=== PATIENT | female | born 1990 | race Caucasian/White ===

== ENCOUNTER 2023-06-17 11:19 | Emergency (ER) | payer MEDICAID, OTHER ==
[~2023-06-17] VITALS: Ht 149.9 cm; Wt 66.3 kg
[~2023-06-17 11:19] MED LIST: VICODIN
[2023-06-17 11:49] VITALS: BP 101/53; PULSE 56; RESP 18; TEMP 99; O2SAT 100
[2023-06-17] MEDS ORDERED: diphenhdrAMINE HCL 50 MG/1 ML VL IM ONE (12:15)
[2023-06-17] MEDS ORDERED: HYDROcodone-ACET 5/325MG TAB PO ONE (12:15)
[2023-06-17] MEDS ORDERED: KETOROLAC TROMETH 60MG/2ML VIAL IM ONE (12:15)
[2023-06-17] MEDS ORDERED: PRED20TA2 PO (13:14)
[2023-06-17] MEDS ORDERED: TRAM50TA2 PO (13:14)
== END 2023-06-17 13:21 | disposition home or self-care (01) ==
LOC: ER 11:19
DX: M54.42 Lumbago with sciatica, left side (principal); M41.9 Scoliosis, unspecified
CPT/HCPCS: 72100; 96372; 99284; J1200; J1885

== ENCOUNTER → 2024-12-26 | Outpatient (CLI) | payer MEDICAID ==
[~2024-12-26] MED LIST changes: +PRED20TA2 PO; +TRAM50TA2 PO
[2024-12-26 08:32] LABS: Basophils # (auto) 0 10 ^3/uL (0-0.2); Basophils % (auto) 0.3 % (0.0-2.0); Eosinophils # (auto) 0.1 10 ^3/uL (0-0.8); Eosinophils % (auto) 1.3 % (0.0-7.0); Hematocrit 38.2 % (36.0-46.0); Hemoglobin 13.4 g/dL (12.2-16.2); Lymphocytes # (auto) 1.9 10 ^3/uL (0.4-5.4); Lymphocytes % (auto) 18.7 % (10.0-50.0); Mean Corpuscular Hgb Conc. 35.2 g/dL (32.0-36.0); Mean Corpuscular Volume 88.2 fL (80.0-100.0); Monocytes # (auto) 0.5 10 ^3/uL (0-1.3); Monocytes % (auto) 5.1 % (0.0-12.0); Neutrophils # (auto) 7.6 10 ^3/uL (1.6-8.6); Neutrophils % (auto) 74.6 % (37.0-80.0); Nucleated Red Blood Cells % 0.1 %; Platelet Count (auto) 215 10^3/uL (140-450); Red Blood Cells 4.33 10^6/uL (4.0-5.20); Red Cell Distribution Width 13.4 % (11.8-14.3); White Blood Cell 10.2 10^3/uL (4.4-10.8)
[2024-12-26 08:51] LABS: Alkaline Phosphatase 113 U/L (46-116); Anion Gap 8 (5-15); Aspartate Aminotransferase 37 U/L (13-40); Calcium 9.3 mg/dL (8.7-10.4); Carbon Dioxide 22 mmol/L (20-31); Potassium 3.9 mmol/L (3.5-5.1); Sodium 138 mmol/L (136-145); Total Protein 6.5 g/dL (5.7-8.2)
[2024-12-26 08:52] LABS: BUN/Creatinine Ratio 9.6 (10.0-20.0); Bilirubin, Total 0.4 mg/dL (0.2-1.0); Blood Urea Nitrogen < 5 mg/dL (9-23); Chloride 108 mmol/L (98-107)
[2024-12-26 08:53] LABS: Alanine Aminotransferase 51 U/L (7-40)
[2024-12-26 09:06] LABS: Glucose 77 mg/dL (74-106)
[2024-12-27 06:07] LABS: RPR Non Reactive (Non Reactive)
[2024-12-27 23:07] LABS: Chlamydia Trachomatis, NAA Negative (Negative); Neisseria gonorrhoeae, NAA Negative (Negative)
== END | disposition home or self-care (01) ==
LOC: LAB 07:58
PROVIDERS: ATTEND Obstetrics & Gynecology
DX: Z34.00 Encounter for supervision of normal first pregnancy, unspecified trimester (principal); Z3A.00 Weeks of gestation of pregnancy not specified
CPT/HCPCS: 36415; 80053; 82951; 83036; 85025; 86592; 86850; 86900; 86901

== ENCOUNTER 2025-01-14 06:53 | Observation (INO) | payer MEDICAID ==
--- NOTE | 2025-01-14 13:49 | DVH ---
BIOPHYSICAL PROFILE HISTORY: gdma1 TECHNIQUE: Multiple transabdominal real-time grayscale sonographic images through the gravid uterus of the fetus with duplex Doppler color flow and M-mode spectral analysis FINDINGS: BIOPHYSICAL PROFILE: breathing score: 2/2 movement score: 2/2 tone score: 2/2 Quantitative MAYNOR score: 2/2 (MAYNOR: 19.5 Cm.) Total score: 8 out of 8 The cervix closed Single live fetus in cephalic presentation. heart rate 138 beats per minute. Posterior placenta without previa or abruption IMPRESSION: 1. Biophysical profile score: 8/8
--- NOTE | 2025-01-14 23:44 | DVHDS2 ---
Discharge Summary Date of Admission Jan 14, 2025 at 12:52 Date of Discharge: Jan 14, 2025 Admitting Diagnosis 31 wk GDM A1 for routine monitoring Labs/Diagnostic Data: Laboratory Results Test 01/14/25 13:59 POC Glucose 84 mg/dl (70-106) Brief Hx & Hospital Course: US and FHT reasuring Condition at Discharge: Good Final Diagnosis/Problems List GDM A1 31 weeks Discharge Disposition: Home Discharge Instruct/Medications Diet: Consistent carbohydrate Activity: No Restrictions, As Tolerated Discharge Statement: "Patient was advised to return to the ER or call 911 if any headaches, dizziness, shortness of breath, chest pain, abdominal pain, bleeding, fevers, or worsening of medical condition. Patient was counseled about treatment plan, medications, possible side effects, patientverbalized understanding. All questions were answered to the best of my ability. This discharge took greater then 30 minutes in planning, reviewing documentation, counseling the patient, and discussing with other team members." ASSESSMENT ASSESSMENT Assessment Visit Coding OBGYN Date of Service: Jan 14, 2025 Billing Provider: FIDE KELLY DO DEPUTY CHIEF EXECUTIVE Common Visit Codes: 48127-KYD/OBS SAME DATE (LOW), 18318-ANH/OBS SAME DATE (MOD), 07697-STQ/OBS SAME DATE (HIGH) DEPUTY CHIEF EXECUTIVE Procedure Codes: 19532-73- NON-STRESS TEST FIDE KELLY DO Jan 14, 2025 23:44
== END 2025-01-14 14:26 | disposition home or self-care (01) ==
LOC: LDRP 12:52 → UNDOADMOB 12:52 → LDRP 13:00 → UNDODISOB 14:26
PROVIDERS: ADMIT Obstetrics & Gynecology; ATTEND Obstetrics & Gynecology
DX: O24.419 Gestational diabetes mellitus in pregnancy, unspecified control (principal); Z98.890 Other specified postprocedural states; Z79.899 Other long term (current) drug therapy; Z3A.31 31 weeks gestation of pregnancy
CPT/HCPCS: 59025; 76819; 81002; 82948; 82962; 94760; G0378

== ENCOUNTER 2025-01-16 13:00 | Observation (INO) | payer MEDICAID ==
[~2025-01-16] VITALS: Ht 147.3 cm; Wt 70.8 kg
--- NOTE | 2025-01-16 14:06 | DVH ---
Procedure: US BIOPHYSICAL PROFILE 01/16/2025 01:30 PM Indication: decreased movement Comparison: US BIOPHYSICAL PROFILE on DOS: 01/14/25 Technique: Sonogram of gravid uterus utilizing grayscale and color techniques. FINDINGS: Single living intrauterine gestation. Presentation: Cephalic Placenta: Posterior heart rate: 157 bpm MAYNOR: 19.1 cm, DVP: 6.1 cm Maternal cervix: Not visualized Biophysical Profile: breathing score: 2 movement score: 2 tone: 2 Quantitative MAYNOR score: 2 Total score: 8/8 IMPRESSION: 1. Single living as above. 2. Biophysical profile score: 8/8.
[2025-01-16] MEDS ORDERED: LACTATED RINGER'S 1,000 ML IV ONE (14:15)
[2025-01-16 14:48] LABS: Urine Bacteria FEW /hpf (None Seen); Urine Blood Negative /uL (Negative); Urine Clarity Clear (Clear); Urine Color Light-Yellow (Yellow); Urine Protein, UAD Negative (Negative); Urine Specific Gravity 1.011 (1.001-1.035); Urine Squamous Epithelial Cell FEW /hpf (<5); Urine Urobilinogen Normal (Negative); Urine WBC < 1 /HPF (0-5)
[2025-01-16 14:58] LABS: Amphetamine Screen, Urine Neg (NEGATIVE); Barbiturate Scree,Urine Neg (NEGATIVE); Benzodiazephine Screen, Urine Neg (NEGATIVE); Cannabinoid Screen, Urine Neg (NEGATIVE); Cocaine Screen, Urine Neg (NEGATIVE); Opiate Scree,Urine Neg (NEGATIVE); Phencyclidine Screen, Urine Neg (NEGATIVE)
[2025-01-16] MEDS: TERBUTALINE SULFATE 1 MG/ML 1ML VIAL SC SCH (15:43)
[2025-01-16] MEDS ORDERED: NIFE10CA52 PO (16:09)
--- NOTE | 2025-01-16 21:42 | DVHDS2 ---
Physician Discharge Progress N Final Diagnosis: wellbeing established PTL GDM, A1 Operations or Procedures: Operations or Procedures S: 34yo IUP@32.1wks presents to OB triage with c/o DFM for last 2 hours. PNC at [facility] OB, complicated by GDM, A1. Denies UCs/LOF/VB. O: VSS NST reactive TOCO: UCs noted initially, IV fluid bolus and terbutaline SQ x1 given then no UCs prior to D/C PO hydrate Laboratory Tests Test 01/16/25 13:45 01/16/25 13:58 Range/Units Urine Color Light-yellow Yellow Urine Clarity Clear Clear Urine pH 6.0 5.0-9.0 Urine Specific Crystal 1.011 1.001-1.035 Urine Protein Negative Negative Urine Ketones Negative Negative Urine Blood Negative Negative /uL Urine Nitrite Negative Negative Urine Bilirubin Negative Negative Urine Urobilinogen Normal Negative mg/dL Urine Leukocyte Esterase Negative Negative /uL Urine RBC None seen 0 - 4 /hpf Urine Microscopic WBC < 1 0-5 /HPF Urine Squamous Epithelial Cells Few <5 /hpf Urine Bacteria Few H None Seen /hpf Urine Glucose 1+ H Normal mg/dL Urine Opiates Screen Neg NEGATIVE Urine Fentanyl Screen Neg NEGATIVE Urine Barbiturates Screen Neg NEGATIVE Urine Phencyclidine Screen Neg NEGATIVE Urine Amphetamines Screen Neg NEGATIVE Urine Benzodiazepines Screen Neg NEGATIVE Urine Cocaine Screen Neg NEGATIVE Urine Cannabinoids Screen Neg NEGATIVE POC Glucose 66 L 70-106 mg/dl A: 34yo IUP@32.1wks wellbeing established PTL GDM, A1 P: D/C home Dr. Ardon consulted, rx sent for procardia 10mg Q6hrs FKC/PTL precautions reviewed Condition on Discharge: Stable Disposition: Home Discharge Instructions: Diet: Consistent carbohydrate Activity: See Comment Activity comment: pelvic rest Follow Up/Referral: f/u in 1 wk Medications: see med list Follow Up Care: Specialist: f/u in 1 wk Discharge Statement: "Patient was advised to return to the ER or call 911 if any headaches, dizziness, shortness of breath, chest pain, abdominal pain, bleeding, fevers, or worsening of medical condition. Patient was counseled about treatment plan, medications, possible side effects, patientverbalized understanding. All questions were answered to the best of my ability. This discharge took greater then 30 minutes in planning, reviewing do cumentation, counseling the patient, and discussing with other team members." Visit Coding OBGYN Date of Service: Jan 16, 2025 Billing Provider: OPAL MARCOS CNM CAR LOADER Common Visit Codes: 46426-[id number] OBS CARE (HIGH) CAR LOADER Procedure Codes: 33599-72- NON-STRESS TEST OPAL MARCOS CNM Jan 16, 2025 21:41
== END 2025-01-16 16:30 | disposition home or self-care (01) ==
LOC: LDRP 13:00
PROVIDERS: ADMIT Obstetrics & Gynecology; ATTEND Obstetrics & Gynecology
DX: O60.03 Preterm labor without delivery, third trimester (principal); O24.419 Gestational diabetes mellitus in pregnancy, unspecified control; O36.8190 Decreased fetal movements, unspecified trimester, not applicable or unspecified; O09.523 Supervision of elderly multigravida, third trimester; Z3A.32 32 weeks gestation of pregnancy; Z98.890 Other specified postprocedural states; Z79.899 Other long term (current) drug therapy
CPT/HCPCS: 76819; 80307; 81001; 81002; 82962; 94760; G0378; J3105; 96372

== ENCOUNTER 2025-01-21 09:44 | Observation (INO) | payer MEDICAID ==
[~2025-01-21 09:44] MED LIST changes: +NIFE10CA52 PO; -PRED20TA2 PO; -TRAM50TA2 PO; -VICODIN
--- NOTE | 2025-01-21 10:57 | DVH ---
BIOPHYSICAL PROFILE HISTORY: GDMA1/PTL TECHNIQUE: Multiple transabdominal real-time grayscale sonographic images through the gravid uterus of the fetus with duplex Doppler color flow and M-mode spectral analysis FINDINGS: BIOPHYSICAL PROFILE: breathing score: 2 movement score: 2 tone score: 2 Quantitative MAYNOR score: 2 (MAYNOR: 15 Cm.) Total score: 8 The cervix is closed measuring 3.3cm Single live fetus in cephalic presentation. heart rate 15.3 beats per minute. Grade II posterior placenta without previa or abruption IMPRESSION: Biophysical profile score: 8/8
--- NOTE | 2025-01-22 14:24 | DVHDS2 ---
Physician Discharge Progress N Final Diagnosis: gdm 32 wks Operations or Procedures: Operations or Procedures nst,sono Condition on Discharge: Good Disposition: Home Discharge Instructions: Diet: Consistent carbohydrate Activity: No Restrictions, As Tolerated Medications: na Follow Up Care: Specialist: 4d Discharge Statement: "Patient was advised to return to the ER or call 911 if any headaches, dizziness, shortness of breath, chest pain, abdominal pain, bleeding, fevers, or worsening of medical condition. Patient was counseled about treatment plan, medications, possible side effects, patientverbalized understanding. All questions were answered to the best of my ability. This discharge took greater then 30 minutes in planning, reviewing documentat ion, counseling the patient, and discussing with other team members." Visit Coding OBGYN Date of Service: Jan 21, 2025 Billing Provider: ALBERTO VIVEROS DO IT BUSINESS SYSTEMS ANALYST Common Visit Codes: [id number] INP/OBS CARE(HIGH) IT BUSINESS SYSTEMS ANALYST Procedure Codes: 42482-05- NON-STRESS TEST ALBERTO VIVEROS DO Jan 22, 2025 14:24
== END 2025-01-21 11:00 | disposition home or self-care (01) ==
LOC: LDRP 09:44 → UNDOADMOB 09:44 → LDRP 09:54
PROVIDERS: ADMIT Obstetrics & Gynecology; ATTEND Obstetrics & Gynecology
DX: O24.419 Gestational diabetes mellitus in pregnancy, unspecified control (principal); Z98.890 Other specified postprocedural states; Z79.899 Other long term (current) drug therapy; Z3A.32 32 weeks gestation of pregnancy
CPT/HCPCS: 76817; 76818; 81002; 82948; 82962; 94760; G0378; 76819

== ENCOUNTER 2025-01-28 06:35 | Observation (INO) | payer MEDICAID ==
--- NOTE | 2025-01-28 12:04 | DVH ---
BIOPHYSICAL PROFILE HISTORY: GDMA1/PTL- cervical length Comparison Study: 01/21/2025 TECHNIQUE: Multiple real-time grayscale sonographic images through the gravid uterus of the fetus wi th duplex Doppler color flow and M-mode spectral analysis FINDINGS: BIOPHYSICAL PROFILE: breathing score: 2 movement score: 2 tone score: 2 Quantitative MAYNOR score: 2 (MAYNOR: 17.2 Cm.) Total score: 8 The cervix is closed and measures 3.5 cm. Single live fetus in cephalic presentation. heart rate 127 beats per minute. Posterior placenta without previa or abruption IMPRESSION: Biophysical profile score: 8
[2025-01-28] MEDS ORDERED: PREN-96 PO (12:43)
--- NOTE | 2025-01-29 12:27 | DVHDS2 ---
Physician Discharge Progress N Final Diagnosis: gdm,ptl 33wks Operations or Procedures: Operations or Procedures nst,sono 33wks Condition on Discharge: Good Disposition: Home Discharge Instructions: Diet: Regular, Consistent carbohydrate Activity: No Restrictions, As Tolerated Medications: na Follow Up Care: Specialist: 3d Discharge Statement: "Patient was advised to return to the ER or call 911 if any headaches, dizziness, shortness of breath, chest pain, abdominal pain, bleeding, fevers, or worsening of medical condition. Patient was counseled about treatment plan, medications, possible side effects, patientverbalized understanding. All questions were answered to the best of my ability. This discharge took greater then 30 minutes in planning, reviewing documentation, counseling the patient, and discussing with other team members." Visit Coding OBGYN Date of Service: Jan 28, 2025 Billing Provider: ALBERTO VIVEROS DO RESIDENTIAL CARE OFFICER Common Visit Codes: 43420-GWHLTON INP/OBS CARE (HIGH) RESIDENTIAL CARE OFFICER Procedure Codes: 29282-12- NON-STRESS TEST ALBERTO VIVEROS DO Jan 29, 2025 12:27
== END 2025-01-28 12:52 | disposition home or self-care (01) ==
LOC: LDRP 10:43 → UNDOADMOB 10:43 → LDRP 10:54
PROVIDERS: ADMIT Obstetrics & Gynecology; ATTEND Obstetrics & Gynecology
DX: O60.03 Preterm labor without delivery, third trimester (principal); O24.419 Gestational diabetes mellitus in pregnancy, unspecified control; Z98.890 Other specified postprocedural states; Z79.899 Other long term (current) drug therapy; Z3A.33 33 weeks gestation of pregnancy
CPT/HCPCS: 59025; 76819; 81002; 82948; 82962; 94760; G0378

== ENCOUNTER 2025-02-06 06:44 | Observation (INO) | payer MEDICAID ==
[~2025-02-06 06:44] MED LIST changes: +PREN-96 PO
--- NOTE | 2025-02-06 14:28 | DVHDS2 ---
Physician Discharge Progress N Final Diagnosis: gdm Operations or Procedures: Operations or Procedures nst,sono Condition on Discharge: Good Disposition: Home Discharge Instructions: Diet: Consistent carbohydrate Activity: Light activity Medications: na Follow Up Care: Specialist: 1w Discharge Statement: "Patient was advised to return to the ER or call 911 if any headaches, dizziness, shortness of breath, chest pain, abdominal pain, bleeding, fevers, or worsening of medical condition. Patient was counseled about treatment plan, medications, possible side effects, patientverbalized understanding. All questions were answered to the best of my ability. This discharge took greater then 30 minutes in planning, reviewing documentation, counseling the patient, and discussing with other team members." Visit Coding OBGYN Date of Service: Feb 06, 2025 Billing Provider: ALBERTO VIVEROS DO OTM CONSULTANT Common Visit Codes: [id number]-[id number] INP/OBS CARE (HIGH) OTM CONSULTANT Procedure Codes: 42925-34- NON-STRESS TEST ALBERTO VIVEROS DO Feb 06, 2025 14:28
--- NOTE | 2025-02-06 16:49 | DVH ---
Procedure: US BIOPHYSICAL PROFILE 02/06/2025 01:17 PM Indication: GDMA1 Comparison: US BIOPHYSICAL PROFILE on DOS: 01/28/25, US BIOPHYSICAL PROFILE on DOS: 01/21/25, US BIOPHYS ICAL PROFILE on DOS: 01/16/25 Technique: Sonogram of gravid uterus utilizing grayscale and color techniques. FINDINGS: Single living intrauterine gestation. Presentation: Cephalic Placenta: Posterior, grade 2 heart rate: 116 bpm MAYNOR: 18.7 cm, DVP: 4.9 cm Maternal cervix: Not visualized Biophysical Profile: breathing score: 2 movement score: 2 tone: 2 Quantitative MAYNOR score: 2 Total score: 8/8 IMPRESSION: 1. Single living as above. 2. Biophysical profile score: 8/8.
== END 2025-02-06 14:15 | disposition home or self-care (01) ==
LOC: LDRP 12:26
PROVIDERS: ADMIT Obstetrics & Gynecology; ATTEND Obstetrics & Gynecology
DX: O24.419 Gestational diabetes mellitus in pregnancy, unspecified control (principal); O09.523 Supervision of elderly multigravida, third trimester; Z3A.35 35 weeks gestation of pregnancy; Z88.0 Allergy status to penicillin; Z87.891 Personal history of nicotine dependence
CPT/HCPCS: 59025; 76819; 81002; 82948; 82962; G0378

== ENCOUNTER 2025-03-08 16:22 | Inpatient (IN) | payer MEDICAID ==
[~2025-03-08] VITALS: Ht 147.3 cm; Wt 72.6 kg
--- NOTE | 2025-03-08 17:24 | DVH ---
BIOPHYSICAL PROFILE HISTORY: Decrease Movement TECHNIQUE: Multiple real-time grayscale sonographic images through the gravid uterus of the fetus wi th duplex Doppler color flow. FINDINGS: BIOPHYSICAL PROFILE: breathing score: 2 movement score: 2 tone score: 2 Quantitative MAYNOR score: 2 Total score: 8 out of 8 lie is cephalic. heart rate 125 beats per minute. MAYNOR 12 cm. Placental calcifications . placenta fundal lead positioned. IMPRESSION: 1. Biophysical profile score: 8 out of 8 2. Placental calcifications
[2025-03-08] MEDS ORDERED: PHISODERM TOP SOLN 240ML BTL TOP PRN (18:45)
[2025-03-08] MEDS ORDERED: WITCH HAZEL-GLYCERIN PAD TOP PRN (18:45)
[2025-03-08] MEDS ORDERED: NALBUPHINE HCL 10 MG/1ml INJECTION IV PRN (18:45)
[2025-03-08] MEDS ORDERED: DERMOPLAST 60ML BOTTLE TOP PRN (18:45)
[2025-03-08] MEDS ORDERED: LIDOCAINE 2%HCL (LOCAL ANESTH.) INJ 20ML MDV IJ PRN (18:45)
--- NOTE | 2025-03-08 18:54 | DVHHP ---
ADMIT DATE: 03/08/2025 CHIEF COMPLAINT: Labor. HISTORY OF PRESENT ILLNESS: The patient is a 34-year-old 2, para 0 with EDC 03/12, estimated gestational age of 39 weeks, admitted for spontaneous rupture of membrane. The patient was noted to be 4 cm. She has limited care. There was no report of vaginal bleeding. PAST MEDICAL HISTORY: None. PAST SURGICAL HISTORY: None. SOCIAL HISTORY: None. FAMILY HISTORY: None. OBSTETRIC AND GYNECOLOGIC HISTORY: One miscarriage. REVIEW OF SYSTEMS: Consistent with HPI. ALLERGIES: No known drug allergies. PHYSICAL EXAMINATION: VITAL SIGNS: Stable, afebrile. HEENT: Within normal limits. CARDIOVASCULAR: Regular rate and rhythm. LUNGS: Clear to auscultation. BREASTS: Symmetrical. No masses. ABDOMEN: Gravid. Positive heart. PELVIC: 47-50%, -3. EXTREMITIES: No clubbing, cyanosis, or edema. IMPRESSION: * Intrauterine at 39+ weeks with spontaneous rupture of membrane. * Advanced maternal age. PLAN: Informed consent obtained. We will obtain ultrasound and proceed with augmentation of labor. DO VANESSA Kellogg/SHAUN TID: [id number] RECEIPT: [id number]
[2025-03-08 19:12] LABS: Basophils # (auto) 0 10 ^3/uL (0-0.2); Basophils % (auto) 0.4 % (0.0-2.0); Eosinophils # (auto) 0 10 ^3/uL (0-0.8); Eosinophils % (auto) 0.3 % (0.0-7.0); Hematocrit 41.9 % (36.0-46.0); Hemoglobin 14.4 g/dL (12.2-16.2); Lymphocytes # (auto) 2.4 10 ^3/uL (0.4-5.4); Lymphocytes % (auto) 22.9 % (10.0-50.0); Mean Corpuscular Hemoglobin 29.9 pg (28.0-32.0); Mean Corpuscular Hgb Conc. 34.4 g/dL (32.0-36.0); Monocytes # (auto) 0.5 10 ^3/uL (0-1.3); Monocytes % (auto) 4.8 % (0.0-12.0); Neutrophils # (auto) 7.7 10 ^3/uL (1.6-8.6); Neutrophils % (auto) 71.6 % (37.0-80.0); Nucleated Red Blood Cells % 0.1 %; Platelet Count (auto) 190 10^3/uL (140-450); Red Blood Cells 4.82 10^6/uL (4.0-5.20); Red Cell Distribution Width 14.1 % (11.8-14.3); White Blood Cell 10.7 10^3/uL (4.4-10.8)
[2025-03-08 19:29] LABS: INR 0.9 (0.9-1.15); Partial Thromboplastin Time 25.6 SEC (24.5-34.5); Prothrombin Time 9.6 sec (9.3-11.8)
[2025-03-08 19:30] LABS: Urine Bacteria MOD /hpf (None Seen); Urine Blood Negative /uL (Negative); Urine Clarity Turbid (Clear); Urine Color Light-Yellow (Yellow); Urine Protein, UAD Negative (Negative); Urine Specific Gravity 1.013 (1.001-1.035); Urine Squamous Epithelial Cell MOD /hpf (<5); Urine Urobilinogen Normal (Negative); Urine WBC 81 /HPF (0-5)
[2025-03-08 19:33] LABS: Alanine Aminotransferase 25 U/L (7-40); Anion Gap 10 (5-15); Aspartate Aminotransferase 29 U/L (13-40); BUN/Creatinine Ratio 20.9 (10.0-20.0); Calcium 9.6 mg/dL (8.7-10.4); Glucose 81 mg/dL (74-106); Sodium 136 mmol/L (136-145); Total Protein 6.6 g/dL (5.7-8.2)
[2025-03-08 19:34] LABS: Alkaline Phosphatase 250 U/L (46-116); Amphetamine Screen, Urine Neg (NEGATIVE); Barbiturate Scree,Urine Neg (NEGATIVE); Benzodiazephine Screen, Urine Neg (NEGATIVE); Bilirubin, Total 0.4 mg/dL (0.2-1.0); Blood Urea Nitrogen 9 mg/dL (9-23); Cannabinoid Screen, Urine Neg (NEGATIVE); Carbon Dioxide 18 mmol/L (20-31); Chloride 108 mmol/L (98-107); Cocaine Screen, Urine Neg (NEGATIVE); Opiate Scree,Urine Neg (NEGATIVE); Phencyclidine Screen, Urine Neg (NEGATIVE)
--- NOTE | 2025-03-08 19:44 | DVHPN2 ---
Chief Complaints Patient reports: No new complaints Nursing reports: No new complaints Objective Medications Current Medications Medications (Trade) Dose Ordered Sig/Chanelle Route PRN Reason Start Time Stop Time Status Last Admin Benzocaine (Dermoplast) 1 applic PRN PRN TOP PERINEAL AREA DISCOMFORT 03/08/25 18:45 Clindamycin Phosphate 50 ml @ 50 mls/hr Q8H IV 03/08/25 19:00 Lactated Ringer's 1,000 ml @ 125 mls/hr Q8H IV 03/08/25 18:45 Lidocaine HCl (Xylocaine) 20 ml ONCE PRN IJ PERINEAL AREA DISCOMFORT 03/08/25 18:45 Nalbuphine HCl (Nubain) 10 mg Q4HP PRN IV MODERATE PAIN (4-6 PAIN SCALE) 03/08/25 18:45 Sodium Lauryl Sulfate (Phisoderm) 240 ml PRN PRN TOP PERINEAL AREA DISCOMFORT 03/08/25 18:45 Witch Meghna (Tucks) 1 pad PRN PRN TOP PERINEAL AREA DISCOMFORT 03/08/25 18:45 Others VE- UNCHANGED,POS POOLING Studies Laboratory Tests 03/08/25 19:00 Test 03/08/25 19:00 Range/Units Serum Glucose 81 74-106 mg/dL Ass/Plan Assessment 39 WKS WITH SROM AMA Plan AWITING JULIO MAY HAVE EPIDURAL Visit Coding OBGYN Date of Service: March 08, 2025 Billing Provider: ALBERTO VIVEROS DO TANK WASHER Common Visit Codes: [id number] OBS CARE (HIGH) TANK WASHER Procedure Codes: 97533-14- NON-STRESS TEST ALBERTO VIVEROS DO March 08, 2025 19:44
[2025-03-08] MEDS: LACTATED RINGER'S 1,000 ML IV SCH (20:18)
[2025-03-08] MEDS: CLINDAMYCIN 900MG IV 50 ML IV SCH (20:18)
--- NOTE | 2025-03-08 20:55 | DVH ---
Procedure: US OB ULTRASOUND COMP GTR 14 WKS 03/08/2025 07:45 PM HISTORY: Estimated weight COMPARISON: None TECHNIQUE: Sonogram of the gravid uterus was performed. FINDINGS: Single living intrauterine gestation. Presentation: Cephalic Placenta: Anterior heart rate: 130 bpm MAYNOR: 3.9 cm, 12 cm in the previous exam performed the same day Deepest vertical pocket: 1.8 cm Maternal cervix: Not visualized The following measurements were obtained: Biparietal diameter: 9.6 cm corresponding to 39 weeks and 1 day Head Circumference: 35 cm corresponding to 40 weeks and 3 days Abdominal Circumference: 35.8 cm corresponding to 39 weeks and 5 days Femoral Length: 7.6 cm corresponding to 38 weeks and 5 days Average Ultrasound Age: 39 weeks and 4 days Estimated Date of Delivery by US: 03/11/2025 Estimated Weight: 3802 g corresponding to 74 th percentile IMPRESSION: 1. Single currently living intrauterine gestation, as described above. 2. Oligohydramnios with amniotic fluid index of 3.9 cm, decreased from 12 cm in the prior exam perfor med earlier today suggesting rupture of membrane.
[2025-03-08] MEDS ORDERED: NALOXONE HCL 0.4 MG/ML VIAL IV ONE (22:00)
[2025-03-08] MEDS ORDERED: ePHEDrine SULFATE 50 MG/ML AMP IV ONE (22:00)
[2025-03-08] MEDS: ROPIVACAINE HCL 200 ML ONE (23:31)
--- NOTE | 2025-03-09 02:18 | DVHPN2 ---
Chief Complaints Patient reports: No new complaints Nursing reports: No new complaints Objective Medications Current Medications Medications (Trade) Dose Ordered Sig/Chanelle Route PRN Reason Start Time Stop Time Status Last Admin Benzocaine (Dermoplast) 1 applic PRN PRN TOP PERINEAL AREA DISCOMFORT 03/08/25 18:45 Clindamycin Phosphate 50 ml @ 50 mls/hr Q8H IV 03/08/25 19:00 03/08/25 20:18 Lactated Ringer's 1,000 ml @ 125 mls/hr Q8H IV 03/08/25 18:45 03/09/25 02:05 Lidocaine HCl (Xylocaine) 20 ml ONCE PRN IJ PERINEAL AREA DISCOMFORT 03/08/25 18:45 Nalbuphine HCl (Nubain) 10 mg Q4HP PRN IV MODERATE PAIN (4-6 PAIN SCALE) 03/08/25 18:45 Sodium Lauryl Sulfate (Phisoderm) 240 ml PRN PRN TOP PERINEAL AREA DISCOMFORT 03/08/25 18:45 Witch Meghna (Tucks) 1 pad PRN PRN TOP PERINEAL AREA DISCOMFORT 03/08/25 18:45 Others VE-3CM/60/-2 Studies Laboratory Tests 03/08/25 19:00 Test 03/08/25 19:00 Range/Units Serum Glucose 81 74-106 mg/dL Ass/Plan Assessment 39 WKS WITH SROM AMA Plan IUPC PLACED START AMNIOINFUSION Visit Coding OBGYN Date of Service: March 09, 2025 Billing Provider: ALBERTO VIVEROS DO LAB DIRECTOR Common Visit Codes: [id number] INP/OBS CARE(HIGH) LAB DIRECTOR Procedure Codes: 28406-57- NON-STRESS TEST ALBERTO VIVEROS DO March 09, 2025 02:18
[2025-03-09] MEDS: SODIUM CHLORIDE 0.9% 200 ML IUPC ONE (05:56)
[2025-03-09] MEDS: SODIUM CHLORIDE 0.9% 1,000 ML IUPC SCH (05:56)
[2025-03-09] MEDS ORDERED: TERBUTALINE SULFATE 1 MG/ML 1ML VIAL SC PRN (07:00)
[2025-03-09] MEDS: LACT. RINGERS/OXYTOCIN 20UNITS 1,000 ML IV SCH (07:25)
[2025-03-09] MEDS: LIDOCAINE HCL 2 %PF INJ 10ML AMP IJ ONE (11:15)
[2025-03-09] MEDS: ROPIVACAINE HCL 0 ML ONE (11:15)
[2025-03-09] MEDS: D5W/LACTATED RINGERS 1,000 ML IV SCH (11:43)
--- NOTE | 2025-03-09 15:53 | LDN2 ---
Labor and Delivery Note Date 03/09/25 Age 34 2 Para 1 AB 1 EDC 03/12/25 EGA 39.4 weeks Diagnosis GDMA1, SROM Vaginal Delivery: VTX Vacuum Assisted: Yes Placenta: Spontaneous Sex: Male Weight 7lb 9oz Apgars 7/8 Amniotic Fluid: Clear Anesthesia Epidural Episiotomy: No Repaired with N/A NO lacerations EBL 100 mL Labs Blood Bank 03/08/25 19:00: Blood Type O POSITIVE Complications Patient pushed for approximately 1 hour with epidural, achieving progress to near , +3 station. However, became very exhausted and with poor pushing efforts. Unable to push effectively past the pubic symphysis due to heavy epidural and complete analgesia. Verbal consent obtained to assist with vacuum delivery, patient agreed. R/B/A discussed. RN present as witness. Pelvis assessed. 10cm dilated, pelvis adequate for vaginal delivery. position ELYSIA, EFW of 3800gm already known by US completed on admission. Bladder emptied by Rueda catheter. Kiwi Vac placed x 1 time at vertex, 2cm anterior to the posterio fontanelle. 1 gentle pull with very minimal force needed to help patient guide the head out past the pubic symphysis while she pushed with contraction effort. Vacuum was removed after and the patient herself was allowed to push remainder of the head out until full head expulsion on the next few subsequent contractions. After delivery of the head, patient again w/ poor pushing effort. Time of head to body delivery approximately 80 seconds. Mild shoulder dystocia encountered and immediately recognized. Sadi maneuver employed followed by very gentle downward traction to deliver the anterior (right) shoulder. Buckley and Craig maneuvers subsequently needed to free (right) anterior shoulder and align both shoulders in the AP axis. The baby was then easily delivered after these interventions without use of excessive force or traction to achieve delivery. Umbilical cord was quickly clamped and cut and baby handed off to pediatric team where O2 was given by mask/ CPAP. scores of 7/8 were assigned. Baby moving all extremities without deficits. NO cephalohematoma or buckner on head from vacuum application. Placenta delivered spontaneously, 3VC, EBL 100ml. No lacerations , no episiotomy necessary. Mild labial abrasions only not requiring sutures. Fundus firm. IV pitocin given with delivery of placenta. Cord blood gases obtained, results reviewed and WNL. Mother and baby both doing well. Visit Coding OBGYN Date of Service: March 09, 2025 Billing Provider: PAPITO LUCAS DO ADAPTED PHYSICAL EDUCATION SPECIALIST Common Visit Codes: [id number] INP/OBS CARE(HIGH), PROCEDURE ONLY ADAPTED PHYSICAL EDUCATION SPECIALIST Procedure Codes: 25806-SODXB OB CARE,VAG DELIVERY PAPITO LUCAS DO March 09, 2025 15:53
[2025-03-09] MEDS ORDERED: ACETAMINOPHEN 325 MG TAB PO PRN (16:15)
[2025-03-09] MEDS: IBUPROFEN 800 MG TAB PO PRN (17:01)
[2025-03-09 19:30] VITALS: PULSE 72; RESP 16; O2SAT 100
[2025-03-09] MEDS: LACT. RINGERS/OXYTOCIN 20UNITS 500 ML IV ONE ×2 (19:53→19:54)
[2025-03-09 23:00] VITALS: BP 115/64; PULSE 84; RESP 16; TEMP 97.8; O2SAT 98
[2025-03-10 03:00] VITALS: BP 123/74; PULSE 88; RESP 16; TEMP 97.8; O2SAT 100
--- NOTE | 2025-03-10 06:14 | DVHPN2 ---
Progress Note Date Seen: March 10, 2025 Subjective PPD#1 s/p Vacuum assisted vaginal delivery, complicated by very mild shoulder dystocia with no injury S: patient doing well. Mild cramps, no pain. Lochia mild. vital signs Vital Sign Date Time Temp Pulse Resp B/P (MAP) Pulse Ox O2 Delivery O2 Flow Rate FiO2 03/10/25 03:00 97.8 88 16 123/74 (90) 100 97.8 03/09/25 19:30 Room Air Total Intake and Output 03/09/25 03/09/25 03/10/25 15:00 23:00 07:00 Output Total 900 ml Balance -900 ml medications Current Medications Medications Dose Ordered Sig/Chanelle Route Start Time Stop Time Status Last Admin Dose Admin Witch Meghna 1 pad PRN PRN TOP 03/08/25 18:45 Sodium Lauryl Sulfate 240 ml PRN PRN TOP 03/08/25 18:45 Benzocaine 1 applic PRN PRN TOP 03/08/25 18:45 Acetaminophen 650 mg Q4HP PRN PO 03/09/25 16:15 Ibuprofen 800 mg Q6H PRN PO 03/09/25 16:15 03/09/25 17:01 800 MG laboratory and microbiology Laboratory Tests 03/08/25 19:00 Test 03/08/25 19:00 Range/Units Serum Glucose 81 74-106 mg/dL Objective O: AFVSS Chest: heart and lung sounds normal. Abd soft, non-tender, fundus firm, BS, no rebound or guarding, Ext Neg Homans, Non-tender, edema Lochia - minimal Labs Pending. Assessment/Plan PPD#1 s/p VAVD, doing well Plan: continue current care advance orders Possible discharge this evening or tomorrow, if remains stable. Plan discussed with: Patient Visit Coding OBGYN Date of Service: March 10, 2025 Billing Provider: PAPITO LUCAS DO TOILET AND LAUNDRY SOAP SUPERVISOR Common Visit Codes: [id number] INP/OBS CARE(MOD) PAPITO LUCAS DO March 10, 2025 06:14
[2025-03-10] MEDS ORDERED: IBUP-1455 PO (06:40)
--- NOTE | 2025-03-10 06:42 | DVHDS2 ---
Physician Discharge Progress N Final Diagnosis: Term , delivered Secondary Diagnosis: Mild shoulder dystocia Operations or Procedures: Operations or Procedures Vacuum assisted vaginal delivery Condition on Discharge: Stable Disposition: Home Discharge Instructions: Diet: Regular Activity: Light activity Activity comment: Pelvic rest x 6 wk Follow Up/Referral: [address] Ardon Medications: Ibuprofen PRN Follow Up Care: Discharge Statement: "Patient was advised to return to the ER or call 911 if any headaches, dizziness, shortness of breath, chest pain, abdominal pain, bleeding, fevers, or worsening of medical condition. Patient was counseled about treatment plan, medications, possible side effects, patientverbalized understanding. All questions were answered to the best of my ability. This discharge took greater then 30 minutes in planning, reviewing documentation, counseling the patient, and discussing with other team members." Visit Coding OBGYN Date of Service: March 10, 2025 Billing Provider: PAPITO LUCAS DO ROVING HAULER Common Visit Codes: 87722-BCZ/OBS DISCH DAY <30MIN PAPITO LUCAS DO March 10, 2025 06:42
[2025-03-10 07:00] VITALS: BP 113/62; PULSE 99; RESP 16; TEMP 98.2; O2SAT 100; O2SAT 99
[2025-03-10 11:00] VITALS: BP 114/68; PULSE 100; RESP 18; TEMP 98.3; O2SAT 100
[2025-03-10 15:00] VITALS: BP 103/64; PULSE 100; RESP 18; TEMP 98.6; O2SAT 98
[2025-03-10 15:43] VITALS: TEMP 37
[2025-03-10 18:50] VITALS: BP 118/71; PULSE 95; RESP 16; TEMP 98.1; O2SAT 99
[2025-03-11 22:06] LABS: Chlamydia Trachomatis, NAA Negative (Negative); Neisseria gonorrhoeae, NAA Negative (Negative)
== END 2025-03-10 20:45 | disposition home or self-care (01) | DRG 560 ==
LOC: LDRP 16:22 → OBSVTOIN 18:38 → LDRP 18:53
PROVIDERS: ADMIT Obstetrics & Gynecology; ATTEND Obstetrics & Gynecology
PROC: 10D07Z6 Extraction of Products of Conception, Vacuum, Via Natural or Artificial Opening (ICD-10-PCS; principal; 2025-03-09)
PROC: 3E0R3BZ Introduction of Anesthetic Agent into Spinal Canal, Percutaneous Approach (ICD-10-PCS; 2025-03-09)
PROC: 00HU33Z Insertion of Infusion Device into Spinal Canal, Percutaneous Approach (ICD-10-PCS; 2025-03-09)
PROC: 3E033VJ Introduction of Other Hormone into Peripheral Vein, Percutaneous Approach (ICD-10-PCS; 2025-03-09)
DX: O66.0 Obstructed labor due to shoulder dystocia (principal); Z37.0 Single live birth; O24.420 Gestational diabetes mellitus in childbirth, diet controlled; Z3A.39 39 weeks gestation of pregnancy
CPT/HCPCS: 36415; 59409; 76805; 76819; 80053; 80307; 81001; 81002; 82948; 82962; 84112; 85025; 85610; 85730; 86780; 86803; 86850; 86900; 86901; 94760; 94762; 96360; 96361; 96365; 96366; 96374; 96375; G0378; J2590; J3490